=== PATIENT | male | born 1955 | race Caucasian/White ===

== ENCOUNTER 2023-11-01 05:42 | Day surgery (SDC) | payer MEDICARE, SELFPAY ==
[2023-11-01] VITALS (9 sets, daily range): BP systolic 113–127; BP diastolic 83–93; PULSE 64–92; RESP 16–20; TEMP 36.1–36.6; O2SAT 97–98; BMI 23.8
[2023-11-01] MEDS: Lactated Ringers 1,000 ML 15 ML IV (06:19)
--- NOTE | 2023-11-01 07:07 | PCM.PRE.AN2 ---
ASA Classification* ASA Classification ASA Classification: 2 Assessment & Plan Anesthesia* Anesthesia Assessment Anesthesia Assessment: Discussed sedation and/or anesthesia options, risks, benefits, and alternatives with patient/parents/legal guardian/POA. Questions invited. The patient/parents/legal guardian/POA seems to understand and agrees to proceed with anesthesia plan. Reviewed the physical assessment, medical history, allergy history and patient home medications list prior to surgery/procedure/anesthetic and documented any changes. Performed airway and anesthesia risk assessments. 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 When Was Last Pacemaker Check QUESTION #4 FULL TEXT: You/Your Family Experience fever (hyperthermia) with Anesthesia Last Oral Intake Last Oral intake: Last Oral Intake NPO since 00:00 11/01/23 06:09 Meds taken in AM with sips of water? 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 Female No 10/18/23 14:41 HX of Motion Sickness No 10/18/23 14:41 HX of N/V After Surgery No 10/18/23 14:41 Non-Smoker Yes 10/18/23 14:41 Duration of Surgery greater Yes 10/18/23 14:41 than 60 minutes Number of Risk Factors 2 10/18/23 14:41 PONV Score Moderate Risk 10/18/23 14:41 Height & Weight Height & Weight: Anesthesia: Height & Weight Height 6 ft 11/01/23 06:09 Weight: 79.5 kg 11/01/23 06:09 Body Mass Index (BMI) 23.8 11/01/23 06:09 Respiratory Assessment Respiratory Assessment - 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 Has anyone observed you stop breathing during sleep? STOP Results Positive 10/18/23 14:41 QUESTION #5 FULL TEXT : Do you snore loudly (louder than talking or can be heard through closed doors)? 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 Specify any problems Hx of Preganancy in last 3 N/A 10/18/23 14:41 Months Nurse Filling Out Transfusion NBUCHER 10/18/23 14:41 & Questions: Date: 10/18/23 10/18/23 14:41 Time: 14:43 10/18/23 14:41 Patient unable to answer at this time (ie. 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 boat captain Hx Now No 10/18/23 14:41 Gestational Age (in weeks): EDC: Hx Hx Para Hx Section SAB No 10/18/23 14:41 Active Medications Active Medications: Current Medications Generic Name Dose Route Start Last Admin Trade Name Freq PRN Reason Stop Dose Admin Clindamycin Phosphate 900 mg in 50 mls @ 75 mls/hr 11/01/23 07:30 Cleocin IV 11/01/23 08:09 PREOP ONE Lactated Ringer's 1,000 mls @ 15 mls/hr 11/01/23 06:00 11/01/23 06:19 IV 15 mls/hr .Q48H FLORY Administration PFSH Medical History Wears hearing aid Loss of hearing Wears glasses Arthritis Hyperbilirubinemia Prostate disease Fatty liver High cholesterol Diverticulosis Non-smoker History of stress test Family history of prostate problems History of high cholesterol History of gallstones Home Medications ?Medication ?Instructions ?Recorded ?Last Taken ?Type atorvastatin 10 mg tablet 10 mg PO DAILY 07/30/23 Unknown History finasteride 1 mg tablet 1 mg PO DAILY 07/30/23 Unknown History tamsulosin 0.4 mg capsule (Flomax) 0.4 mg PO DAILY 07/30/23 Unknown History ezetimibe 10 mg tablet (Zetia) 10 mg PO DAILY 10/08/23 Unknown History erythromycin 5 mg/gram (0.5 %) eye 1 applic ophthalmic (eye) DAILY 10/22/23 Unknown Rx ointment #3.5 grams sulfamethoxazole 800 1 tab PO BID #10 tabs 10/22/23 Unknown Rx mg-trimethoprim 160 mg tablet (Bactrim DS) Allergy/AdvReac Type Severity Reaction Status Date / Time Penicillins Allergy Mild PT UNSURE Verified 11/01/23 06:08 OF REACTION Family History Father Heart disease Mother Hypertension Surgical History History of colonoscopy History of urologic surgery History of Achilles tendon repair History of shoulder surgery Social History Smoking Status: Never smoker alcohol intake: never substance use type: does not use additional social history: pt denies vaping, denies edibles, denies marijuana use, denies chewing tobacco Uses ibuprofen and aspirin as needed. Review of Systems (Anesthesia) ROS Narrative System reviewed and no additional complaints, except as documented.
--- NOTE | 2023-11-01 07:35 | PCM.HP.BLA ---
History and Physical Date of Admission: 11/01/23 The patient is examined and there are no changes to the H&P dated 10/15/23. Pt for upper blepharoplasty. Informed consent obtained. Assessment & Plan Assessment/Plan (1) Visual field defect: (2) Dermatochalasis of both upper eyelids: PLAN: Plan for bilateral upper blepharoplasty
[2023-11-01] MEDS: Clindamycin 900 MG/50 ML BAG 75 MG IV (07:55)
[2023-11-01] MEDS: Povidone Iodine 30 ML Opthalmic Sol 1 DRP (08:08)
[2023-11-01] MEDS: Erythromycin Base 1 OPTH.TUBE 1 APPLIC (08:08)
[2023-11-01] MEDS: Tetracaine 0.5% Ophthalmic Bottle 1 DRP (08:11)
[2023-11-01] MEDS: Lidocaine 1% /Epi 1:100 (20ml) 20 ML Vial (08:11)
--- NOTE | 2023-11-01 09:25 | EX.PCM.DISCH ---
Discharge Instructions Dressing / Incision Additional Dressing/Incision Instructions:: Follow the instructions given in the office. Maintain the cool compresses and your back elevated. Follow Up Care Please Follow Up With: Aliza Spencer MD When: As scheduled in 1 to 2 weeks. Test Results: Test results from this visit will be discussed in further detail at your follow-up appointment, if applicable. Discharge Plan Admission Attending Provider: Aliza Spencer Primary Care Provider: Felix Hooks Instructions Print Language: Azerbaijani Discharge Orders/Prescriptions Prescriptions: No Action tamsulosin [Flomax] 0.4 mg capsule 0.4 mg PO DAILY finasteride 1 mg tablet 1 mg PO DAILY atorvastatin 10 mg tablet 10 mg PO DAILY ezetimibe [Zetia] 10 mg tablet 10 mg PO DAILY sulfamethoxazole-trimethoprim [Bactrim DS] 800-160 mg tablet 1 tab PO BID Qty: 10 0RF erythromycin 5 mg/gram (0.5 %) ointment 1 applic ophthalmic (eye) DAILY Qty: 3.5 0RF Rx Instructions: Apply in eyes at nighttime and on incisions 1 x a day. Referrals / Follow Up: Felix Hooks MD [Primary Care Provider] - Disposition Disposition (needs filled in before D/C Order can be placed): Home, Self Care
--- NOTE | 2023-11-01 09:26 | PCM.OPRPT ---
Problems Associated Problem List Diagnoses (1) Visual field defect: (2) Dermatochalasis of both upper eyelids: Report of Operation Date of Procedure: 11/01/23 Pre-Operative Diagnosis: Bilateral upper eyelid dermatochalasis Visual field defect Post-Operative Diagnosis: Same Surgery/Procedure Performed:: Bilateral upper blepharoplasty Surgeon: Aliza Spencer code official: KEM RODARTEjackscrew man Type of Anesthesia: General Estimated Blood Loss (mL): Minimal Description of Procedure: The patient presents today for upper blepharoplasty due to visual field defect. The procedure been thoroughly reviewed with the patient including the expected pre-, intra, and postoperative course. An informed consent was obtained. The patient is marked in the preop holding area prior to surgery. The patient is brought to the operating room and placed under general anesthesia in the supine position. Care is taken to pad all pressure points, apply sequential compression stockings, and a warming blanket. The eyes and face are prepped and draped in the usual sterile fashion. Tetracaine drops are placed in the eye and corneal person lubricated with ophthalmic antibiotic ointment or inserted. We initially began with injecting the proposed incisions with lidocaine with epinephrine. Following this and allowing an adequate amount of time for hemostasis, the incisions are made along the premarked lines. The designated skin to be removed is then removed and a subdermal plane. Hemostasis is controlled with cautery. A sliver of orbicularis oculi is then removed within the site. Again meticulous hemostasis is pursued. Incision is then tacked together with a fast-absorbing gut suture. We then directed our attention to the opposite side where the identical procedure was performed. Following this, a 5-0 Prolene suture was used to approximate skin edges in a subcuticular fashion. The suture ends are anchored at the presybeterian and glabella with Mastisol and Steri-Strips. The corneal person are removed. Cool compresses are placed on the eyes throughout the procedure. A loose headband is used to maintain the cool compresses in place. He tolerated the procedure well. He was taken to recovery area in an awake and stable condition. Needle and sponge counts are correct. Complications None Admit VTE Documentation VTE Mechan Device Prophylaxis: SCD's
--- NOTE | 2023-11-01 09:44 | PCM.POST.ANE ---
Anesthesia: Postop Eval I Current Vital Signs Temperature: 96.9 F Pulse Rate: 89 Blood Pressure: 116/83 Respiratory Rate: 20 Pulse Ox: 97 Oxygen Delivery Method: Room Air Assessment Airway patent: Yes Spontaneous unlabored respirations: Yes Mental status: Asleep nausea: No Vomiting: No Anesthesia Complication: No Fluid Hydration Crystalloid volume administer (ml): 900 Total IV fluid infused: 900 Progress Note Anesthesia document: Postop Eval 1 completed: Yes
--- NOTE | 2023-11-01 12:47 | POSTOPAN2_ITS ---
Anesthesia Postop Eval I Sum Postop Eval Completion status Anesthesia document: Postop Eval 1 completed: Yes Anesthesia Postop Eval I Summary Anesthesia Postop Eval I Summary: Anesthesia Postop Eval I: Assessment Summary Airway patent Yes 11/01/23 09:46 [email or web address] Spontaneous unlabored Yes 11/01/23 09:46 [email or web address] respirations Mental status Asleep 11/01/23 09:46 [email or web address] nausea No 11/01/23 09:46 [email or web address] Vomiting No 11/01/23 09:46 [email or web address] Anesthesia Postop Eval I: Fluid Summary Crystalloid volume administer 900 11/01/23 09:46 [email or web address] (ml) Colloids volume administered ( ml) Blood Product volume administered (ml) Total IV fluid infused 900 11/01/23 09:46 [email or web address] [email or web address] Anesthesia Postop Eval I: Summary Notes Anesthesia Complication No 11/01/23 09:46 [email or web address] Anesthesia Complication Comment: Post-operative progress note Anesthesia: Postop Eval II Evaluation Mental status: Awake Pain Level: 0 nausea: No Vomiting: No
--- NOTE | 2023-11-01 12:47 | PCM.POSTANE2 ---
Anesthesia Postop Eval I Sum Postop Eval Completion status Anesthesia document: Postop Eval 1 completed: Yes Anesthesia Postop Eval I Summary Anesthesia Postop Eval I Summary: Anesthesia Postop Eval I: Assessment Summary Airway patent Yes 11/01/23 09:46 RISK CONTROL [email or web address] Spontaneous unlabored Yes 11/01/23 09:46 RISK CONTROL [email or web address] respirations Mental status Asleep 11/01/23 09:46 RISK CONTROL [email or web address] nausea No 11/01/23 09:46 RISK CONTROL [email or web address] Vomiting No 11/01/23 09:46 RISK CONTROL [email or web address] Anesthesia Postop Eval I: Fluid Summary Crystalloid volume administer 900 11/01/23 09:46 RISK CONTROL [email or web address] (ml) Colloids volume administered ( ml) Blood Product volume administered (ml) Total IV fluid infused 900 11/01/23 09:46 RISK CONTROL [email or web address] Anesthesia Postop Eval I: Summary Notes Anesthesia Complication No 11/01/23 09:46 RISK CONTROL [email or web address] Anesthesia Complication Comment: Post-operative progress note Anesthesia: Postop Eval II Evaluation Mental status: Awake Pain Level: 0 nausea: No Vomiting: No
== END 2023-11-01 12:08 | disposition home or self-care (01) ==
LOC: SDC 05:44 → AC 05:45
PROVIDERS: PCP Internal Medicine; Referring Provider Plastic Surgery; Visit Provider Plastic Surgery
PROC: (CPT 15823; principal; 2023-11-01 07:20)
DX: H02.831 Dermatochalasis of right upper eyelid (principal); H02.834 Dermatochalasis of left upper eyelid; H53.453 Other localized visual field defect, bilateral; N40.0 Benign prostatic hyperplasia without lower urinary tract symptoms; E78.00 Pure hypercholesterolemia, unspecified; Z79.899 Other long term (current) drug therapy
CPT/HCPCS: 15823; 00103; J7120; J2405